=== PATIENT | male | born 1965 | race Caucasian/White ===

== ENCOUNTER 2025-05-01 07:41 | Day surgery (SDC) | payer OTHER ==
[~2025-05-01 07:41] MED LIST: Lactated Ringers 1,000 ML IV SCH; Sodium Chloride 0.9% 10 ML Syringe FLUSH PRN
[2025-05-01] MEDS: Lactated Ringers 1,000 ML IV SCH (07:55)
[2025-05-01] MEDS ORDERED: Propofol 200 MG/20 ML SDV ONE (08:28)
[2025-05-01] MEDS ORDERED: fentaNYL 100 MCG/2 ML SDV ONE (08:28)
[2025-05-01 10:29] VITALS: PULSE 73
[2025-05-01 10:41] VITALS: BP 130/69
== END 2025-05-01 11:07 | disposition home or self-care (01) ==
LOC: VM.SDS 07:41
PROVIDERS: ATTEND Family Medicine
DX: Z12.11 Encounter for screening for malignant neoplasm of colon (principal); K52.9 Noninfective gastroenteritis and colitis, unspecified; K63.89 Other specified diseases of intestine; K57.30 Diverticulosis of large intestine without perforation or abscess without bleeding; I10 Essential (primary) hypertension; E11.9 Type 2 diabetes mellitus without complications; F32.A Depression, unspecified; E78.2 Mixed hyperlipidemia; E03.9 Hypothyroidism, unspecified; K21.9 Gastro-esophageal reflux disease without esophagitis; E66.812 Obesity, class 2; Z68.33 Body mass index [BMI] 33.0-33.9, adult; Z80.0 Family history of malignant neoplasm of digestive organs; Z86.0101 Personal history of adenomatous and serrated colon polyps; Z79.4 Long term (current) use of insulin; Z79.82 Long term (current) use of aspirin; Z79.890 Hormone replacement therapy; Z79.899 Other long term (current) drug therapy
CPT/HCPCS: 00811; 82947; J2704; J3010; J7120